=== PATIENT | female | born 1950 | race Caucasian/White ===

== ENCOUNTER 2016-11-11 15:00 | Inpatient (IN) | payer OTHER, BC ==
[~2016-11-11] VITALS: Ht 165.1 cm; Wt 131.6 kg
--- NOTE | ~2016-11-11 | H ---
[facility] [address] HISTORY AND PHYSICAL Name: MICHELL HORAN Room #: 421-P [facility] IN M.R.#: [id number] Admission: 11/11/16 Attend Phys: Corey Ponce MD Discharge: 11/13/16 Date of : 50 Report #: [id number] THIS REPORT FOR: //name// CC: Corey Ponce CHIEF COMPLAINT: Weakness. HISTORY OF PRESENT ILLNESS: The patient is a 66-year-old female with underlying Parkinson's disease who is into the clinic for a mobility evaluation. She has been progressively getting worse with increasing weakness. She has weakness in her legs due to her Parkinson's and her spinal stenosis. She is unable to transfer and has become very weak. PAST MEDICAL HISTORY: Significant for: 1. Parkinson's disease. 2. Lumbar spinal stenosis. 3. Hyperlipidemia. 4. Hypertension. 5. Chronic anemia. 6. Insomnia. 7. Irritable bowel. 8. Diabetes mellitus. 9. Reflux. ALLERGIES: PENICILLIN, SULFA, TOAN INHIBITORS, MACROBID. MEDICATIONS: Include fentanyl, losartan, omega-3 fish oil, colestipol, fenofibrate, potassium, Pravachol. SOCIAL HISTORY: She is and lives with her , nonsmoker, nondrinker. REVIEW OF SYSTEMS: CONSTITUTIONAL: Positive for malaise and weakness. No fever or chills. HEENT: No headaches or visual changes. CHEST: No chest pains, tightness in chest, shortness of breath or cough. GASTROINTESTINAL: No vomiting or diarrhea. GENITOURINARY: No burning or frequency. EXTREMITIES: Generalized weakness and swelling. NEUROLOGIC: Weakness. No numbness, tremor. PHYSICAL EXAMINATION: VITAL SIGNS: Blood pressure 156/100, pulse is 91, respiratory rate is 18, O2 sat is 95%. She is afebrile. Her weight is 290 pounds. GENERAL: She is in a wheelchair, is unable to stand on her own. HEENT: Her mucous membranes are dry. NECK: Supple. No adenopathy, thyromegaly or bruits. [facility] [place] [address] HISTORY AND PHYSICAL Name: MICHELL HORAN Room #: 421-P [facility] IN M.R.#: [id number] Admission: 11/11/16 Attend Phys: Corey Ponce MD Discharge: 11/13/16 Date of : 50 Report #: [id number] CHEST: Clear to auscultation. CARDIOVASCULAR: Regular without murmur. ABDOMEN: Soft, no masses. Bowel sounds are active. EXTREMITIES: Show 3+ edema. Her pulses are intact. NEUROLOGIC: weakness in both lower extremities with inability to stand and bear any weight. Sensory is grossly intact. ASSESSMENT: 1. Parkinson's disease. 2. Lumbar spinal stenosis. 3. Weakness and inability. PLAN: We will admit, start on PT and OT and get rehab evaluation. We will resume her home meds as listed above. <ELECTRONICALLY SIGNED> By: Corey Ponce MD 11/22/16 [id number] Corey Ponce MD /nt
--- NOTE | ~2016-11-11 | HC ---
[facility] [place] [address] [place] [address] CONSULTATION Name: MICHELL HORAN Room #: 421-P [facility] IN M.R.#: [id number] Admission: 11/11/16 Attend Phys: Corey Ponce MD Discharge: 11/13/16 Date of : 50 Report #: [id number] THIS REPORT FOR: //name// CC: Corey Ponce DATE OF SERVICE: 11/13/2016 DATE OF SERVICE: 11/13/2016 HISTORY OF PRESENT ILLNESS: The patient is a 66-year-old white female with history of Parkinson's disease, morbid obesity, who has had problems with worsening weakness and failure to thrive at home. She has weakness in her legs due to her Parkinson's disease and spinal stenosis. She is having more and more difficulty with transfers. She does have some problems with urinary incontinence and has had excoriations of her genital area. She is having issues getting in and out of her bathroom. PAST MEDICAL HISTORY: Includes Parkinson's disease. She has had a prior deep brain stimulator. She does have the history of lumbar spinal stenosis. She has noted bilateral carpal tunnel syndrome and has had prior right carpal tunnel release. She has had prior right rotator cuff surgery. She has a history of obesity, hyperlipidemia, hypertension, irritable bowel syndrome, diabetes mellitus, reflux. MEDICATIONS: Please see the full medication listing. ALLERGIES: PENICILLIN, SULFA, TOAN INHIBITORS, MACROBID. SOCIAL HISTORY: , lives with her , house. He apparently has had issues with a hernia. She is a premorbid front-wheeled walker ambulator. No steps in. REVIEW OF SYSTEMS: Notes she has some problems with lymphedema and wears apparently Jobst stockings. She denies any specific current complaints of chest pain, shortness of breath or abdominal discomfort. Denies any bowel incontinence, but has had problems with bladder incontinence. Some right shoulder discomfort and has had the prior rotator cuff surgery. She has some numbness of her hands with diagnosed carpal tunnel syndrome. PHYSICAL EXAMINATION: GENERAL: She is a pleasant, obese 66-year-old white female in no obvious distress. Height 5 feet 5 inches, weight 290 pounds. Alert, oriented, pleasant. She has a well-healed scar right shoulder, right hand, right knee. She has some discomfort with end range of the right shoulder, abduction forward flexion. Strength is a grade 4- left upper extremity, functional range of [facility] [address] [place] [address] CONSULTATION Name: MICHELL HORAN Room #: 421-P [facility] IN M.R.#: [id number] Admission: 11/11/16 Attend Phys: Corey Ponce MD Discharge: 11/13/16 Date of : 50 Report #: [id number] motion with strength grade 4-/5. She has a resting tremor, pill rolling of both upper extremities. She does have evidence of some cogwheeling bilateral wrists and elbows. As far as her lower extremities, there is no focal calf swelling. She again has some tremulousness of both legs. There is 1+ edema distally. Appears to have some chronic venous stasis changes. I would grade her strength at 3+ to 4-/5. She is mod assist with [id number] transfers, gait 30 feet min assist with a front-wheeled walker. Toilet transfers are mod assist. Toileting is dependent. ASSESSMENT: A 66-year-old white female with the following problem lists: 1. Parkinson's disease. 2. Lumbar spinal stenosis. 3. Prior deep brain stimulator placement. 4. Bilateral carpal tunnel syndrome. 5. History of bilateral lower extremity lymphedema. 6. Exogenous obesity. 7. Prior right shoulder rotator cuff surgery. 8. Genitourinary skin excoriation. This area was not examined, but discussed with OT. 9. Significant functional mobility and ADL deficits. PLAN: The patient is a candidate for an acute in-hospital inpatient rehabilitation stay. From a preadmission screening perspective: 1. Prior level of function is delineated above. 2. Expect level of improvement would be for the patient to become modified independent with transfers, mobility and ADLs, tried to return back to the home setting. The goal would be at least get to the point where her could assist her. We will need to look at the equipment issues to try to enable her to become modified independent or at least achieve a level where her can assist her, so that she can remain in the home setting. 3. Evaluation of the patient's risk for clinical complications. She does have multiple medical comorbidities as noted above. 4. Condition that caused the need for rehabilitation would be the Parkinson's disease and the significant weakness and debilitation. 5. Treatments needed would include PT and OT 1-1/2 hours per day each 5 days a week throughout the duration of the acute inpatient rehabilitation stay. 6. Anticipated discharge destination is back to the home setting. 7. Would anticipate home healthcare therapies once patient is ready for discharge. 8. The patient meets diagnostic criteria for an acute in-hospital inpatient rehabilitation stay. She meets medical necessity criteria. She does have the tolerance for an acute rehabilitation level and has appropriate discharge goals back to the home setting. <ELECTRONICALLY SIGNED> By: Power Miller MD 11/27/16 1342 [id number] Power Miller MD /michelle
[~2016-11-11 15:00] MED LIST: ACIPHEX 20 MG T20 MG OR; APAP500 OR; ASPIRIN EC81 M1 PO; ASPIRIN325 OR; AVAPRO 150 MG150 M1 OR; BENZTROPINE ME0.5 MG OR; BENZTROPINE OR; CALCIUM 600 WI1 EAC5 OR; CARTIA OR; CENTRUM TABLET1 TAB; CIPROFLOXACIN500 M1 PO; COLESTID1 GM OR; COUMADIN 2 MG TA2 M1 PO; DIFLUCAN200 MG PO; DILTIAZEM ER300 MG OR; DOXYCYCLINE 10100 MG PO; ENDOCET 5-3251 EACH PO; FENTANYL PA12 MCG/HR PAD; FENTANYL PA25 MCG/HR TD; FENTANYL PA50 MCG/HR TRANSDERM; FISH OIL 1,0001 EAC5; GLUCOPHAGE500 MG OR; HALCION0.125 MG OR; KLOR-CON 1010 MEQ PO; LIDODERM 5%1 PATC1 TRANSDERM; LOMOTIL TABLET1 EACH OR; LOSARTAN POTAS100 MG PO; MIRAPEX1.5 MG PO; MYRBETRIQ25 MG PO; NASONEX17 GM INH; NIZORAL120 ML TP; NORCO 5-325 TA1 EACH PO; NYSTATIN15 GM; OPIUM TINC10 MG/1 M1 PO; PRAVACHOL40 MG PO; ROBAXIN 750 MG750 M1 PO; SINEMET 25-1001 EAC1 PO; TRAMADOL 50 MG50 MG PO; TRICOR145 MG OR; TYLENOL PM EX-1 EACH PO; ZOCOR40 MG OR
[2016-11-11 16:03] VITALS: BP 136/56
[2016-11-11 17:20] LABS: HEMATOCRIT 35.5 % (37.0-47.0); HEMOGLOBIN 10.7 gm/dL (12.0-15.0); MCH 21.3 pg (26.0-34.0); MCHC 30.1 % (28.0-37.0); MCV 70.7 fL (80.0-100.0); RBC 5.02 mil/uL (4.20-5.00); RDW 18.2 % (10.5-14.5); WBC 7.7 thou/uL (4.0-11.0)
[2016-11-11 17:40] LABS: ALBUMIN 3.3 g/dL (3.4-5.0); CALCIUM 9.4 mg/dL (8.5-10.1); CREATININE 0.9 mg/dL (0.6-1.3); POTASSIUM 4.1 mmol/L (3.5-5.1); TOTAL BILIRUBIN 0.5 mg/dL (<0.1-1.0); TOTAL PROTEIN 7.6 g/dL (6.4-8.2)
[2016-11-11 22:10] VITALS: BP 145/89
[2016-11-12 05:45] VITALS: BP 138/72
[2016-11-12 07:45] VITALS: BP 125/74
[2016-11-12 16:52] VITALS: BP 123/69
[2016-11-12 20:00] VITALS: BP 109/65
[2016-11-13 04:30] VITALS: BP 124/84
[2016-11-13 08:29] VITALS: BP 104/56
[2016-11-13] MEDS ORDERED: COZAAR 50 MG TA50 M1 PO (12:33)
== END 2016-11-13 15:31 | DRG 552 ==
LOC: 4E 15:00
PROVIDERS: Family Medicine
DX: M48.06 Spinal stenosis, lumbar region (principal); Z68.42 Body mass index [BMI] 45.0-49.9, adult; G20 Parkinson's disease; E66.01 Morbid (severe) obesity due to excess calories; G56.03 Carpal tunnel syndrome, bilateral upper limbs; E78.5 Hyperlipidemia, unspecified; K58.9 Irritable bowel syndrome, unspecified; I10 Essential (primary) hypertension; K21.9 Gastro-esophageal reflux disease without esophagitis; E11.9 Type 2 diabetes mellitus without complications; D63.8 Anemia in other chronic diseases classified elsewhere; G47.00 Insomnia, unspecified; Z88.6 Allergy status to analgesic agent; Z88.7 Allergy status to serum and vaccine; Z88.0 Allergy status to penicillin; Z88.2 Allergy status to sulfonamides; Z88.1 Allergy status to other antibiotic agents; Z23 Encounter for immunization
CPT/HCPCS: 10783

== ENCOUNTER → 2018-01-13 | Outpatient (CLI) | payer OTHER, BC ==
[~2018-01-13] MED LIST changes: +COZAAR 50 MG TA50 M1 PO
== END ==
LOC: RAD 13:34
DX: R91.8 Other nonspecific abnormal finding of lung field (principal); M47.894 Other spondylosis, thoracic region